=== PATIENT | female | born 1995 | race African-American/Black ===

== ENCOUNTER 2016-08-03 14:13 | Emergency (ER) | payer OTHER ==
[~2016-08-03] VITALS: Ht 177.8 cm; Wt 161.0 kg
[~2016-08-03 14:13] MED LIST: BENADRYL25 MG PO
[2016-08-03 15:30] LABS: HEMATOCRIT 40.3 % (37.0-47.0); HEMOGLOBIN 13.4 gm/dL (12.0-15.0); MCH 30.8 pg (26.0-34.0); MCHC 33.2 g/dL (28.0-37.0); MCV 92.7 fL (80.0-100.0); RBC 4.35 mil/uL (4.20-5.00); RDW 13.4 % (10.5-14.5); WBC 6.7 thou/uL (4.0-11.0)
[2016-08-03 15:38] LABS: CALCIUM 8.5 mg/dL (8.5-10.1); CREATININE 0.7 mg/dL (0.6-1.0); POTASSIUM 3.9 mmol/L (3.5-5.1)
[2016-08-03 16:08] LABS: URINE BILIRUBIN NEGATIVE (Negative); URINE BLOOD 3+ (Negative); URINE GLUCOSE-RANDOM* NEGATIVE (Negative); URINE KETONES NEGATIVE (Negative); URINE LEUKOCYTES-REFLEX 3+ (Negative); URINE PROTEIN (DIPSTICK) NEGATIVE (Negative); URINE UROBILINOGEN 0.2 E.U./dl (0.2-1.0)
[2016-08-03 16:09] LABS: URINE COLOR YELLOW
[2016-08-03 16:16] LABS: SQUAMOUS None Seen /LPF (0-3)
[2016-08-03 16:17] LABS: CASTS None Seen /LPF (None Seen); CRYSTALS None Seen /LPF (None Seen); URINE WBC-REFLEX 6-15 Few /HPF (0-5)
[2016-08-03] MEDS ORDERED: KEFLEX500 MG PO (16:59)
[2016-08-03 17:34] VITALS: BP 127/68
== END 2016-08-03 17:35 | disposition home or self-care (01) ==
LOC: ER 14:13
PROVIDERS: Emergency Medicine
DX: O20.0 Threatened abortion (principal); O98.311 Other infections with a predominantly sexual mode of transmission complicating pregnancy, first trimester; O23.41 Unspecified infection of urinary tract in pregnancy, first trimester; F17.210 Nicotine dependence, cigarettes, uncomplicated; Z3A.11 11 weeks gestation of pregnancy

== ENCOUNTER 2016-08-15 10:30 | Emergency (ER) | payer OTHER ==
[~2016-08-15] VITALS: Ht 177.8 cm; Wt 161.0 kg
[~2016-08-15 10:30] MED LIST changes: +KEFLEX500 MG PO
[2016-08-15] MEDS ORDERED: TRINATE TABLET1 TAB PO (10:46)
[2016-08-15 12:08] LABS: ABSOLUTE NEUTROPHILS 3.9 thou/uL (1.4-8.2); BASOPHILS 0.6 % (0.0-2.0); EOSINOPHILS 1.8 % (0.0-3.0); HEMATOCRIT 38.7 % (37.0-47.0); HEMOGLOBIN 13.3 gm/dL (12.0-15.0); LYMPHOCYTES 33.5 % (24.0-44.0); MCH 31.5 pg (26.0-34.0); MCHC 34.5 g/dL (28.0-37.0); MCV 91.2 fL (80.0-100.0); MONOCYTES 7.6 % (1.0-8.0); PLATELET COUNT 282 thou/uL (150-400); POLYS 56.5 % (36.0-66.0); RBC 4.24 mil/uL (4.20-5.00); RDW 13.1 % (10.5-14.5); WBC 6.9 thou/uL (4.0-11.0)
[2016-08-15 12:09] LABS: MANUAL DIFF NO
[2016-08-15 13:20] VITALS: BP 137/84
[2016-08-16 20:07] LABS: NEISSERIA GONORRHEA-PCR Negative (Negative)
[2016-08-17 14:15] LABS: CHLAMYDIA TRACHOMATIS-PCR Positive (Negative)
== END 2016-08-15 13:22 | disposition home or self-care (01) ==
LOC: ER 10:30
PROVIDERS: Physician Assistant
DX: O20.0 Threatened abortion (principal); Z3A.12 12 weeks gestation of pregnancy; F17.210 Nicotine dependence, cigarettes, uncomplicated

== ENCOUNTER 2016-09-12 19:48 | Emergency (ER) | payer OTHER ==
[~2016-09-12] VITALS: Ht 180.3 cm; Wt 161.5 kg
[~2016-09-12 19:48] MED LIST changes: +TRINATE TABLET1 TAB PO
[2016-09-12 20:10] LABS: BASOPHILS 0.8 % (0.0-2.0); EOSINOPHILS 1.7 % (0.0-3.0); HEMATOCRIT 37.2 % (37.0-47.0); HEMOGLOBIN 12.7 gm/dL (12.0-15.0); LYMPHOCYTES 36.5 % (24.0-44.0); MANUAL DIFF NO; MCH 31.7 pg (26.0-34.0); MCHC 34.2 g/dL (28.0-37.0); MCV 92.5 fL (80.0-100.0); MONOCYTES 6.8 % (1.0-8.0); PLATELET COUNT 271 thou/uL (150-400); POLYS 54.2 % (36.0-66.0); RBC 4.02 mil/uL (4.20-5.00); WBC 7.3 thou/uL (4.0-11.0)
[2016-09-12 20:57] LABS: CALCIUM 8.8 mg/dL (8.5-10.1); CREATININE 0.8 mg/dL (0.6-1.0)
[2016-09-12] MEDS ORDERED: ONDANSETRON HCL4 M2 PO (21:01)
[2016-09-12 21:14] VITALS: BP 152/70
== END 2016-09-12 21:25 | disposition home or self-care (01) ==
LOC: ER 19:48
PROVIDERS: Nurse Practitioner
DX: O21.9 Vomiting of pregnancy, unspecified (principal); Z3A.17 17 weeks gestation of pregnancy; F17.210 Nicotine dependence, cigarettes, uncomplicated

== ENCOUNTER 2017-05-30 22:20 | Emergency (ER) | payer OTHER ==
[~2017-05-30] VITALS: Ht 180.3 cm; Wt 161.5 kg
--- NOTE | ~2017-05-30 | EKG ---
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1995 Requested By: Oren Granado Order Number: [id number] MD: Joseph Zavala Measurements Intervals [place] Rate: 67 P: 19 MO: 177 QRS: 47 QRSD: 106 T: 42 QT: 399 QTc: 422 Interpretive Statements Sinus rhythm ST elev, probable normal early repol pattern Baseline wander in lead(s) II,aVR,aVF No previous ECG available for comparison Electronically Signed On 05-31-2017 7:45:49 [employer] by Joseph Zavala [email or web address] <ELECTRONICALLY SIGNED> By: Joseph Zavala MD, [facility] 05/31/17 0745 25 25 Joseph Zavala MD, [facility] /EPI
[~2017-05-30 22:20] MED LIST changes: +ONDANSETRON HCL4 M2 PO
[2017-05-30 22:45] LABS: ABSOLUTE NEUTROPHILS 4.4 thou/uL (1.4-8.2); BASOPHILS 0.7 % (0.0-2.0); EOSINOPHILS 1.3 % (0.0-3.0); HEMATOCRIT 39.8 % (37.0-47.0); HEMOGLOBIN 13.4 gm/dL (12.0-15.0); LYMPHOCYTES 40.9 % (24.0-44.0); MCH 30.8 pg (26.0-34.0); MCHC 33.7 g/dL (28.0-37.0); MCV 91.4 fL (80.0-100.0); PLATELET COUNT 289 thou/uL (150-400); POLYS 50.1 % (36.0-66.0); RBC 4.35 mil/uL (4.20-5.00); RDW 13.9 % (10.5-14.5); WBC 8.7 thou/uL (4.0-11.0)
[2017-05-30 22:54] LABS: ANION GAP 7 mmol/L (7-16); BUN 9 mg/dL (7-18); CALCIUM 8.7 mg/dL (8.5-10.1); CHLORIDE 107 mmol/L (98-107); CO2 25 mmol/L (21-32); CREATININE 0.9 mg/dL (0.6-1.0); GLUCOSE 100 mg/dL (74-106); POTASSIUM 3.9 mmol/L (3.5-5.1); SODIUM 139 mmol/L (136-145)
[2017-05-30 23:03] LABS: ALBUMIN 3.4 g/dL (3.4-5.0); SGOT 18 U/L (15-37); SGPT 25 U/L (30-65); TOTAL BILIRUBIN 0.2 mg/dL (<0.1-1.0); TOTAL PROTEIN 7.3 g/dL (6.4-8.2); TROPONIN-I < 0.04 ng/mL (<0.06)
[2017-05-30] MEDS ORDERED: BENADRYL25 MG PO (23:14)
[2017-05-30] MEDS ORDERED: PREDNISONE 20 M20 MG PO (23:14)
== END 2017-05-30 23:27 | disposition home or self-care (01) ==
LOC: ER 22:20
PROVIDERS: Emergency Medicine
DX: L50.0 Allergic urticaria (principal); F17.210 Nicotine dependence, cigarettes, uncomplicated

== ENCOUNTER 2018-04-17 22:43 | Emergency (ER) | payer BC, OTHER ==
[~2018-04-17] VITALS: Ht 180.3 cm; Wt 147.4 kg
[~2018-04-17 22:43] MED LIST changes: +PREDNISONE 20 M20 MG PO
[2018-04-17] MEDS ORDERED: NAPROSYN500 M1 PO (23:20)
[2018-04-17] MEDS ORDERED: ROBAXIN 750 MG750 M1 PO (23:20)
[2018-04-17 23:42] VITALS: BP 147/94
--- NOTE | 2018-04-18 08:54 | EKG ---
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1995 Requested By: Leon Hernandez Order Number: [id number] MD: Joseph Zavala Measurements Intervals [place] Rate: 69 P: 44 AL: 174 QRS: 9 QRSD: 99 T: 9 QT: 394 QTc: 422 Interpretive Statements Sinus rhythm Poor R wave progression Early repolarization Compared to ECG 05/30/2017 22:26:38 No significant change was found Electronically Signed On 04-18-2018 8:54:13 [employer] INTERN by Joseph Zavala [email or web address] <ELECTRONICALLY SIGNED> By: Joseph Zavala MD, [facility] 04/18/18 0854 D: [id number] 13 Joseph Zavala MD, [facility] /EPI
== END 2018-04-17 23:54 | disposition home or self-care (01) ==
LOC: ER 22:43
DX: R07.89 Other chest pain (principal); F17.210 Nicotine dependence, cigarettes, uncomplicated

== ENCOUNTER 2019-10-02 18:07 | Emergency (ER) | payer BC, OTHER ==
[~2019-10-02] VITALS: Ht 175.3 cm; Wt 147.4 kg
[~2019-10-02 18:07] MED LIST changes: +NAPROSYN500 M1 PO; +ROBAXIN 750 MG750 M1 PO
[2019-10-02 20:32] LABS: ABSOLUTE NEUTROPHILS 3.6 thou/uL (1.4-8.2); BASOPHILS 0.7 % (0.0-2.0); EOSINOPHILS 2.1 % (0.0-3.0); HEMATOCRIT 40.7 % (37.0-47.0); HEMOGLOBIN 14.1 gm/dL (12.0-15.0); LYMPHOCYTES 37.9 % (24.0-44.0); MCHC 34.7 g/dL (28.0-37.0); MCV 94.9 fL (80.0-100.0); MONOCYTES 9.5 % (1.0-8.0); PLATELET COUNT 305 thou/uL (150-400); POLYS 49.8 % (36.0-66.0); RBC 4.28 mil/uL (4.20-5.00); RDW 13.9 % (10.5-14.5); WBC 7.2 thou/uL (4.0-11.0)
[2019-10-02 20:47] LABS: ALBUMIN 3.5 g/dL (3.4-5.0); CALCIUM 8.9 mg/dL (8.5-10.1); CREATININE 0.8 mg/dL (0.6-1.0); TOTAL BILIRUBIN 0.3 mg/dL (0.2-1.0); TOTAL PROTEIN 8.1 g/dL (6.4-8.2)
[2019-10-02] MEDS ORDERED: PENICILLIN V P500 MG PO (20:48)
[2019-10-02] MEDS ORDERED: ONDANSETRON HCL4 M2 PO ×2 (20:48→20:52)
[2019-10-02] MEDS ORDERED: NORCO 5-325 TA1 EAC2 PO (20:48)
[2019-10-02 20:49] LABS: POTASSIUM 7.9 mmol/L (3.5-5.1)
[2019-10-02] MEDS ORDERED: KEFLEX500 M1 PO (20:52)
[2019-10-02 21:46] VITALS: BP 150/90
== END 2019-10-02 21:50 | disposition home or self-care (01) ==
LOC: ER 18:07
PROVIDERS: Physician Assistant
DX: K08.89 Other specified disorders of teeth and supporting structures (principal); R51 Headache; R23.8 Other skin changes; K03.81 Cracked tooth; F17.210 Nicotine dependence, cigarettes, uncomplicated

== ENCOUNTER 2019-10-14 20:09 | Emergency (ER) | payer BC, OTHER ==
[~2019-10-14] VITALS: Ht 177.8 cm; Wt 149.7 kg
[~2019-10-14 20:09] MED LIST changes: +KEFLEX500 M1 PO; +NORCO 5-325 TA1 EAC2 PO; +PENICILLIN V P500 MG PO
[2019-10-14 21:01] LABS: ABSOLUTE NEUTROPHILS 1.5 thou/uL (1.4-8.2); BASOPHILS 0.9 % (0.0-2.0); EOSINOPHILS 0.2 % (0.0-3.0); HEMATOCRIT 43.4 % (37.0-47.0); HEMOGLOBIN 14.5 gm/dL (12.0-15.0); LYMPHOCYTES 38.4 % (24.0-44.0); MCH 31.7 pg (26.0-34.0); MCHC 33.4 g/dL (28.0-37.0); MCV 95.1 fL (80.0-100.0); MONOCYTES 11.1 % (1.0-8.0); PLATELET COUNT 194 thou/uL (150-400); POLYS 49.4 % (36.0-66.0); RBC 4.56 mil/uL (4.20-5.00); RDW 14.1 % (10.5-14.5); WBC 3.1 thou/uL (4.0-11.0)
[2019-10-14 21:08] LABS: CALCIUM 8.3 mg/dL (8.5-10.1); CREATININE 0.7 mg/dL (0.6-1.0); POTASSIUM 5.3 mmol/L (3.5-5.1)
[2019-10-14 21:14] LABS: ALBUMIN 3.4 g/dL (3.4-5.0); TOTAL BILIRUBIN 0.7 mg/dL (0.2-1.0); TOTAL PROTEIN 8.1 g/dL (6.4-8.2)
[2019-10-14] MEDS ORDERED: PEPCID20 MG PO (23:19)
[2019-10-14] MEDS ORDERED: ZOFRAN ODT4 MG PO (23:19)
[2019-10-14 23:28] VITALS: BP 147/78
== END 2019-10-14 23:29 | disposition home or self-care (01) ==
LOC: ER 20:09
PROVIDERS: Emergency Medicine
DX: R11.15 Cyclical vomiting syndrome unrelated to migraine (principal); F12.988 Cannabis use, unspecified with other cannabis-induced disorder; F17.210 Nicotine dependence, cigarettes, uncomplicated; Z79.899 Other long term (current) drug therapy; Z88.8 Allergy status to other drugs, medicaments and biological substances